=== PATIENT | female | born 1955 | race Caucasian/White ===

== ENCOUNTER 2019-10-16 16:02 | Inpatient (IN) | payer OTHER ==
[~2019-10-16] VITALS: Ht 160 cm; Wt 56.0 kg
[2019-10-16 16:07] VITALS: BP 140/78
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
[2019-10-16 16:44] LABS: BASO % 0.4 % (0.0-1.0); EOS # 0.2 10*3/uL (0.0-0.4); EOS % 1.5 % (1.0-4.0); HEMOGLOBIN 14.1 g/dl (12.0-16.0); LYMPH # 2.1 10*3/uL (1.3-4.4); LYMPH % 19.8 % (27.0-41.0); MEAN CELL VOLUME 86.8 fl (81.0-99.0); MEAN CORPUSCULAR HGB 27.8 pg (27.0-31.0); MEAN PLATELET VOLUME 9.3 fl (9.6-12.3); MONO # 0.8 10*3/uL (0.1-1.0); MONO % 6.9 % (3.0-9.0); NEUT # 7.7 10*3/uL (2.3-7.9); NEUT % 71.2 % (47.0-73.0); PLATELET COUNT AUTOMATED 307 10*3/uL (130-400); RED BLOOD COUNT 5.07 10*6/uL (4.10-5.10); WHITE BLOOD COUNT 10.8 10*3/uL (4.8-10.8)
[2019-10-16 17:03] LABS: ALBUMIN 3.8 gm/dl (3.1-4.5); ALKALINE PHOSPHATASE 73 U/L (45-117); BUN 8 mg/dl (7-24); CHLORIDE 109 mmol/L (98-107); CREATININE 0.65 mg/dL (0.55-1.02); POTASSIUM 3.7 mmol/L (3.5-5.1); SGOT/AST 20 IU/L (3-35); SGPT/ALT 18 U/L (12-78); SODIUM 142 mmol/L (136-145); TOTAL PROTEIN 7.2 gm/dL (6.4-8.2)
[2019-10-16 18:40] VITALS: BP 132/74
--- NOTE | 2019-10-16 18:40 | NUR ---
The assessment has been completed. FARA LOPEZ
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
[2019-10-16 20:00] VITALS: BP 121/69
--- NOTE | 2019-10-16 20:00 | NUR ---
NOTIFIED DR. PATTERSON OF CONSULT AND ALL INFORMATION. DR. PATTERSON ASKED FOR THE RESIDENT TO CALL HIM BECAUSE HE THINKS THIS PATIENT MAY NEED TRANSFERRED OUT TO ANOTHER FACILITY. DR. BARDALES NOTIFIED AND GIVEN PHONE NUMBER TO CALL DR. PATTERSON.
--- NOTE | 2019-10-16 21:56 | NUR ---
DR. ZUNIGA STATED PATIENT WILL BE TRANSFERRING TO [facility]. AWAITING ON A BED. PATIENT INFORMED AND AGREES TO TRANSFER.
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
--- NOTE | 2019-10-16 22:20 | NUR ---
WET TO DRY DRESSING APPLIED TO RIGHT HAND PER ORDER.
[2019-10-17] VITALS: BP 114/61
--- NOTE | 2019-10-17 00:30 | NUR ---
PATIENT MEDICATED WITH PRN NORCO FOR C/O 6/10 PAIN IN HER RIGHT HAND. WILL MONITOR FOR EFFECTIVENESS.
--- NOTE | 2019-10-17 01:15 | NUR ---
PER PATIENT PRN NORCO EFFECTIVE.
[2019-10-17 01:45] VITALS: BP 128/70
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
[2019-10-17 02:33] LABS: BASO # 0.1 10*3/uL (0.0-0.1); BASO % 0.5 % (0.0-1.0); EOS # 0.3 10*3/uL (0.0-0.4); EOS % 3.1 % (1.0-4.0); HEMATOCRIT 42.5 % (37.0-47.0); HEMOGLOBIN 13.5 g/dl (12.0-16.0); LYMPH # 2.3 10*3/uL (1.3-4.4); LYMPH % 21.1 % (27.0-41.0); MEAN CELL VOLUME 88.4 fl (81.0-99.0); MEAN CORPUSCULAR HGB 28.1 pg (27.0-31.0); MEAN CORPUSCULAR HGB CONC 31.8 g/dl (33.0-37.0); MEAN PLATELET VOLUME 9.5 fl (9.6-12.3); MONO # 0.9 10*3/uL (0.1-1.0); MONO % 8.3 % (3.0-9.0); NEUT # 7.4 10*3/uL (2.3-7.9); NEUT % 66.6 % (47.0-73.0); PLATELET COUNT AUTOMATED 277 10*3/uL (130-400); RED BLOOD COUNT 4.81 10*6/uL (4.10-5.10); WHITE BLOOD COUNT 11.1 10*3/uL (4.8-10.8)
[2019-10-17 02:48] LABS: BUN 9 mg/dl (7-24); CHLORIDE 109 mmol/L (98-107); CREATININE 0.75 mg/dL (0.55-1.02); POTASSIUM 3.7 mmol/L (3.5-5.1); SODIUM 142 mmol/L (136-145)
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
--- NOTE | 2019-10-17 03:10 | NUR ---
DISCHARGE WOUND PICTURE TAKEN. WET TO DRY DRESSING APPLIED TO RIGHT HAND.
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
== END 2019-10-17 04:45 | disposition short-term general hospital (02) | DRG 603 ==
LOC: ED 16:02 → EDHOLD 17:17 → 4E 17:36
PROVIDERS: Family Medicine; Physician Assistant; ADMIT Internal Medicine
DX: L03.113 Cellulitis of right upper limb (principal); E87.8 Other disorders of electrolyte and fluid balance, not elsewhere classified; F17.200 Nicotine dependence, unspecified, uncomplicated; T23.251A Burn of second degree of right palm, initial encounter; X08.8XXA Exposure to other specified smoke, fire and flames, initial encounter; Y93.89 Activity, other specified; Y92.89 Other specified places as the place of occurrence of the external cause; Y99.8 Other external cause status; I89.0 Lymphedema, not elsewhere classified; Z90.721 Acquired absence of ovaries, unilateral; Z82.0 Family history of epilepsy and other diseases of the nervous system; Z88.2 Allergy status to sulfonamides